=== PATIENT | male | born 1985 ===

== ENCOUNTER 2017-10-02 17:54 | Emergency (ER) | payer OTHER ==
[2017-10-02 18:13] VITALS: BP 129/80; PULSE 70; RESP 16; TEMP 97.7; O2SAT 98
--- NOTE | 2017-10-02 18:38 | ED PDOC ---
Lower Extremity Pain/Injury Time Seen by Provider: 10/02/17 18:28 Chief Complaint (Nursing): Lower Extremity Problem/Injury Chief Complaint (Provider): Toe pain History Per: Patient, Family (Patient has family member at bedside who is translating [place].) History/Exam Limitations: no limitations Onset/Duration Of Symptoms: Days (x 2 weeks) Current Symptoms Are (Timing): Still Present Additional Complaint(s): Will Perez is a 32-year-old male who presents to the emergency department complaining of an abrasion to the right great toe, onset 2 weeks ago. Patient had been wearing shoes that were too small and rubbed against right great toe causing abrasion. Family has been applying bacitracin to the affected area with no improvement. Patient denies any fever, chills, numbness, or tingling. PMD: None Past Medical History Reviewed: Historical Data, Nursing Documentation, Vital Signs Vital Signs: Last Vital Signs Temp 97.7 F 10/02/17 18:11 Pulse 70 10/02/17 18:11 Resp 16 10/02/17 18:11 BP 129/80 10/02/17 18:11 Pulse Ox 98 10/02/17 18:11 - Medical History PMH: No Chronic Diseases - Surgical History Other surgeries: Surgery for diverticulitis - Family History Family History: States: No Known Family Hx - Living Arrangements Living Arrangements: With Family - Social History Current smoker - smoking cessation education provided: No Alcohol: None Drugs: Denies - Immunization History Hx Influenza Vaccination: No Hx Pneumococcal Vaccination: No - Home Medications Home Medications: Ambulatory Orders Medication Instructions Recorded Ciprofloxacin HCl [Cipro] 500 mg PO Q12 #20 tab 12/07/14 Metronidazole [Flagyl] 500 mg PO Q6 #30 tab 12/07/14 Clindamycin [Cleocin] 0 mg PO QID #28 cap 10/02/17 Ibuprofen [Motrin] 600 mg PO Q6 PRN #15 tab 10/02/17 - Allergies Allergies/Adverse Reactions: Allergies Allergy/AdvReac Type Severity Reaction Status Date / Time No Known Allergies Allergy Verified 10/12/14 15:10 Wells Criteria for PE - Wells Criteria for Pulmonary Embolism Clinical Signs and Symptoms of DVT: No P.E is #1 Diagnosis, or Equally Likely: No Heart Rate >100: No Immobilization at least 3 days;Surgery previous 4 weeks: No Previous, objectively diagnosed PE or DVT: No Hemoptysis: No Malignancy w/treatment within 6 months, or palliative: No Total Score: 0 Review of Systems ROS Statement: Except As Marked, All Systems Reviewed And Found Negative Constitutional: Negative for: Fever, Chills Skin: Positive for: Lesions (painful abrasion at right toe) Neurological: Negative for: Numbness (Denies numbness or tingling to right great toe) Physical Exam - Reviewed Nursing Documentation Reviewed: Yes Vital Signs Reviewed: Yes - Physical Exam Appears: Positive for: Well, Non-toxic, No Acute Distress Head Exam: Positive for: ATRAUMATIC, NORMAL INSPECTION, NORMOCEPHALIC Skin: Positive for: Normal Color. Negative for: Rash Eye Exam: Positive for: Normal appearance Pulses-Dorsalis Pedis (L): 2+ Pulses-Dorsalis Pedis (R): 2+ Extremity: Positive for: Normal ROM, Capillary Refill (< 2 sec), Other (2 Infected abrasions noted to the dorsal aspect of right great toe just distal to the eponychial fold, no abscess or drainage. Nail plate intact with no discoloration, remaining toes within normal limits, no diffuse cellulitis noted) Neurologic/Psych: Positive for: Alert, Oriented - ECG O2 Sat by Pulse Oximetry: 98 (RA) Pulse Ox Interpretation: Normal Medical Decision Making Medical Decision Making: Initial Impression: 32 year old male with infected abrasion of right great toe Time: 18:38 Initial Plan: --Clindamycin 300 mg PO --Motrin 600 mg PO Fingerstick is 93 Upon provider evaluation patient is medically stable, and requires no further treatment in the ED at this time. Patient will be discharged home with rx motrin and clindamycin. Counseling was provided and all questions were answered regarding diagnosis and need for follow up with podiatry clinic. There is agreement to discharge plan. Return if symptoms persist or worsen. Scribe Attestation: Documented by Rossy Calderón, acting as a scribe for Lisa Irwin PA-C Provider Scribe Attestation: All medical record entries made by the Scribe were at my direction and personally dictated by me. I have reviewed the chart and agree that the record accurately reflects my personal performance of the history, physical exam, medical decision making, and the department course for this patient. I have also personally directed, reviewed, and agree with the discharge instructions and disposition. Disposition - Clinical Impression Clinical Impression: Infected abrasion - Patient ED Disposition Is Patient to be Admitted: No Counseled Patient/Family Regarding: Diagnosis, Need For Followup, Rx Given - Disposition Referrals: Podiatry Clinic [Outside] Disposition: Routine/Home Disposition Time: 18:58 Condition: STABLE Additional Instructions: Keep wound clean and dry. Do not apply any topical creams or ointments. Wash daily with soap and water. Air out wound for several hours per day. Take prescription meds as directed. Call podiatry clinic in the morning to arrange for follow-up visit in 2-3 days. Prescriptions: Clindamycin [Cleocin] 0 mg PO QID #28 cap Ibuprofen [Motrin] 600 mg PO Q6 PRN #15 tab PRN Reason: Pain, Moderate (4-7) Instructions: Wound Infection (ED), Abrasion (ED) Forms: [facility] ([place]), [facility] School/Work Excuse Print Language: IRANIAN
== END 2017-10-02 19:10 | disposition home or self-care (01) ==
LOC: H.ER 17:54
DX: L08.9 Local infection of the skin and subcutaneous tissue, unspecified (principal); S90.411A Abrasion, right great toe, initial encounter